=== PATIENT | female | born 1990 | race Two or more races ===

== ENCOUNTER → 2017-03-15 09:42 | Outpatient (CLI) | payer MEDICAID ==
[~2017-03-15] VITALS: Ht 165.1 cm; Wt 71.7 kg
[~2017-03-15 09:42] MED LIST: IBUPROFEN800 MG PO; PRENAVITE1 TAB PO
[2017-03-15 14:42] VITALS: Ht 165.1 cm; Wt 71.7 kg
[2017-05-09 20:11] VITALS: Ht 165.1 cm; Wt 71.7 kg
== END | disposition home or self-care (01) ==
LOC: D.FANS 09:42
DX: O24.419 Gestational diabetes mellitus in pregnancy, unspecified control (principal); Z3A.00 Weeks of gestation of pregnancy not specified

== ENCOUNTER → 2017-04-01 10:35 | Outpatient (CLI) | payer MEDICAID ==
[2017-03-15 14:42] VITALS: BMI 26.2
== END | disposition home or self-care (01) ==
LOC: D.LDO 10:35
DX: O24.419 Gestational diabetes mellitus in pregnancy, unspecified control (principal); Z3A.34 34 weeks gestation of pregnancy

== ENCOUNTER 2017-04-25 01:38 | Outpatient (CLI) | payer MEDICAID ==
[2017-03-15 14:42] VITALS: BMI 26.2
[2017-04-25] MEDS ORDERED: PRENAVITE1 TAB PO (02:11)
== END 2017-04-25 02:27 | disposition home or self-care (01) ==
LOC: D.LDO 01:38
DX: O26.893 Other specified pregnancy related conditions, third trimester (principal); Z3A.38 38 weeks gestation of pregnancy

== ENCOUNTER 2017-05-09 14:12 | Inpatient (IN) | payer MEDICAID ==
[~2017-05-09] VITALS: Ht 165.1 cm; Wt 78.9 kg
--- NOTE | ~2017-05-09 | OP ---
PATIENT NAME: FLORENTINO BLEVINS MEDICAL RECORD: [id number] :89 LOCATION:[id number] ADMISSION DATE:05/09/17 SURGEON: PETE HART MD DATE OF OPERATION: 05/12/2017 PREDELIVERY DIAGNOSIS: Mother at term. POSTDELIVERY DIAGNOSIS: Mother delivered at term. PROCEDURE: Induction of labor with a vaginal . ATTENDING: Pete Hart MD ANESTHETIC: None. FINDINGS: Viable female infant NATASHA presentation, Apgars are 8 and 9, weight is still pending at the time of this dictation. Please see the nursing notes and eccentricity for weight information. First-degree laceration without repair. Placenta spontaneous and intact. ESTIMATED BLOOD LOSS: 300 cc. DISPOSITION: Mother and recovered in the room. TRANSINT:[id number] Voice Confirmation ID: [id number] DOCUMENT ID: [id number] PETE HART MD at 1314 CC: [id number] DICTATION DATE: 05/12/17 0912 NURSERY HAND: 05/12/17 1215 ADM IN [facility] [address] [place] [address]
--- NOTE | ~2017-05-09 | DS ---
PATIENT:FLORENTINO BLEVINS :89 MEDICAL RECORD: [id number] DISCHARGE SUMMARY ADMISSION DATE: 05/09/17 DISCHARGE DATE: 05/13/17 DATE OF ADMISSION: ____ DATE OF DISCHARGE: 05/13/2017 ADMISSION DIAGNOSIS: Term . DISCHARGE DIAGNOSIS: Mother delivered at term. PROCEDURE: Induction of labor with cervical ripening. ATTENDING: Dr. Peres HISTORY OF PRESENT ILLNESS: See the H&P in the chart. SUMMARY OF HOSPITALIZATION: The patient was admitted to the hospital and underwent cervical ripening with misoprostol. Hospital day #1, the patient started on Pitocin. The patient failed to go into labor and that evening the Pitocin was discontinued. The hospital day #2, the patient has had another dose of misoprostol and is on Pitocin. At that morning, she was found to be 4 cm, spontaneously ruptured. She went on to deliver vaginally without incident. At the time of discharge, she is doing well with minimal lochia and is using Toradol and Tylenol for pain management. DISCHARGE MEDICATIONS: Will include ibuprofen 800 mg. Follow up in 6 weeks. Precautions have been reviewed. TRANSINT:[id number] Voice Confirmation ID: [id number] DOCUMENT ID: [id number] JOHN PERES MD at 1044 CC: [id number] DICTATION DATE: 05/13/17 1314 [employer]: 05/14/17 1026 DIS IN 05/13/17 [id number] [place] [address]
[~2017-05-09 14:12] MED LIST changes: -IBUPROFEN800 MG PO
[2017-05-09 20:11] VITALS: BP 130/58; Ht 165.1 cm; Wt 78.9 kg
[2017-05-09 21:09] LABS: HEMATOCRIT 39.1 % (36.0-48.0); HEMOGLOBIN 13.1 g/dL (12-16); MCH 29.1 pg (26.0-34.0); MCHC 33.5 g/dL (31.0-37.0); MCV 86.9 fL (80.0-100.0); MEAN PLATELET VOLUME 12.1 fL (7.4-10.4); RBC 4.5 10x6/uL (4.00-5.40); RDW 13.8 % (11.5-14.5); WBC 10.5 10x3/uL (4.8-10.8)
[2017-05-09 21:21] LABS: APPEARANCE CLEAR (CLEAR); BILIRUBIN NEGATIVE (NEGATIVE); COLOR YELLOW (YELLOW); GLUCOSE NEGATIVE (NEGATIVE); KETONE NEGATIVE (NEGATIVE); NITRITE NEGATIVE (NEGATIVE); PROTEIN NEGATIVE (NEGATIVE); UROBILINOGEN NORMAL (NORMAL)
[2017-05-11 07:26] LABS: RAPID PLASMA REAGIN Non Reactive (Non Reactive)
[2017-05-12 20:00] VITALS: BP 123/77
[2017-05-13 08:00] VITALS: BP 119/73
[2017-05-13] MEDS ORDERED: IBUPROFEN800 MG PO (13:50)
== END 2017-05-13 14:00 | disposition home or self-care (01) | DRG 774 ==
LOC: D.LD 14:12
PROVIDERS: Obstetrics & Gynecology
PROC: 3E033VJ Introduction of Other Hormone into Peripheral Vein, Percutaneous Approach (ICD-10-PCS; principal; 2017-05-11)
PROC: 10E0XZZ Delivery of Products of Conception, External Approach (ICD-10-PCS; 2017-05-12)
DX: O24.92 Unspecified diabetes mellitus in childbirth (principal); Z3A.40 40 weeks gestation of pregnancy; Z37.0 Single live birth; O70.0 First degree perineal laceration during delivery